=== PATIENT | male | born 1975 | race Caucasian/White ===

== ENCOUNTER 2017-09-18 22:37 | Emergency (ER) | payer MEDICAID ==
[~2017-09-18] VITALS: Ht 170.2 cm; Wt 104.3 kg
[2017-09-18] MEDS ORDERED: MECLIZINE HCL 25 MG TABLET PO ONE (23:30)
[2017-09-18] MEDS ORDERED: ENALAPRIL 2.5 MG TABLET PO ONE (23:30)
[2017-09-18] MEDS ORDERED: ACETAMINOPHEN ES 500 MG TABLET PO ONE (23:30)
--- NOTE | 2017-09-18 23:32 | NUR ---
ORTHOSTATIC BLOOD PRESSURE DONE LYING 138/88 HR 71 SITTING 134/95 HR 71 STANDING 144/[address] CARDOSO NOTIFIED.
[2017-09-18] MEDS ORDERED: ACETAMINOPHEN ES 500 MG TABLET ONE (23:39)
[2017-09-18] MEDS ORDERED: MECLIZINE HCL 25 MG TABLET ONE (23:39)
[2017-09-18] MEDS ORDERED: ENALAPRIL 2.5 MG TABLET ONE (23:40)
--- NOTE | 2017-09-19 | NUR ---
PATIENT UNABLE TO PROVIDE URINE SAMPLE. DR. WALKER LEONE.
--- NOTE | 2017-09-19 | NUR ---
Patient discharged to home in stable conditon. Written and verbal after care instructions given. Patient verbalizes understanding of instructions. PATIENT LEFT WITH STABLE GAIT.
[2017-09-19 00:01] VITALS: BP 134/84
== END 2017-09-19 00:02 | disposition home or self-care (01) ==
LOC: ER 22:38
DX: I10 Essential (primary) hypertension (principal); R51 Headache; R42 Dizziness and giddiness
CPT/HCPCS: 93005; A4663; A9150; J8597